=== PATIENT | male | born 1985 | race Caucasian/White ===

== ENCOUNTER 2020-01-27 19:21 | Emergency (ER) | payer OTHER ==
[~2020-01-27] VITALS: Ht 195.6 cm; Wt 99.8 kg
[2020-01-27] MEDS ORDERED: ADDERALL 30 MG30 MG PO (19:46)
[2020-01-27] MEDS ORDERED: NORCO 5-325 TA1 EAC2 PO (21:18)
[2020-01-27] MEDS ORDERED: KEFLEX500 M1 PO (21:18)
[2020-01-27 22:12] VITALS: BP 157/105
== END 2020-01-27 22:13 | disposition home or self-care (01) ==
LOC: M.ERS 19:21
DX: S62.611B Displaced fracture of proximal phalanx of left index finger, initial encounter for open fracture (principal); S61.211A Laceration without foreign body of left index finger without damage to nail, initial encounter; W26.0XXA Contact with knife, initial encounter; Y93.89 Activity, other specified; Y92.89 Other specified places as the place of occurrence of the external cause; Y99.8 Other external cause status